=== PATIENT | male | born 2000 | race Caucasian/White ===

== ENCOUNTER 2022-09-24 17:01 | Emergency (ER) | payer BC ==
[~2022-09-24] VITALS: Ht 193 cm; Wt 88.6 kg
[2022-09-24 17:15] VITALS: TEMP 98
[2022-09-24] MEDS ORDERED: AMOXICILLIN 8751 TAB PO (19:11)
[2022-09-24 19:30] VITALS: BP 159/97; PULSE 74
== END 2022-09-24 19:30 | disposition home or self-care (01) ==
LOC: COL.ER 17:01
DX: S09.90XA Unspecified injury of head, initial encounter (principal); S01.311A Laceration without foreign body of right ear, initial encounter; M54.2 Cervicalgia; Z28.310 Unvaccinated for COVID-19; W18.30XA Fall on same level, unspecified, initial encounter; W22.8XXA Striking against or struck by other objects, initial encounter
CPT/HCPCS: J2405; J3010